=== PATIENT | female | born 1985 ===

== ENCOUNTER 2022-01-24 05:29 | Inpatient (IN) | payer OTHER ==
[2022-01-21 10:56] LABS: Hemoglobin 11.6 gm/dl (10.1-14.3)
[2022-01-21 10:59] LABS: Hematocrit 35.8 % (30.3-42.9); Mean Corpuscular HGB Conc 33 % (30-34); Mean Corpuscular Volume 89 fl (79-97); Platelet Count 304 K/mm3 (140-440); Red Blood Count 4.05 M/mm3 (3.65-5.03); Red Cell Distribution Width 13.6 % (13.2-15.2)
--- NOTE | 2022-01-23 17:13 | History and Physical Report ---
History of Present Illness Date of examination: 01/24/22 Chief complaint: Scheduled section History of present illness: Pt is a 36 year old female JERE 02/14/22 at 37w0d who presents for scheduled section due to malpresentation and intrauterine growth restriction. She denies contractions, vaginal bleeding or leakage of fluid. She has had care at [facility] with comanagement by MFM secondary to advanced maternal age, intrauterine growth restriction, malpresentation, late entry to care at 20 wks, morbid obesity, lapse in care from 25-32 wks, genital herpes without lesion or prodrome, and Anti-E antibody positive. Her GBS status is unknown as the culture was collected on 01/22/22. 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 History: herpes Family/Genetic History: hypertension Social history: no significant social history - Obstetrical History Expected Date of Delivery: 02/14/22 Actual Gestation: 36 Week(s) 6 Day(s) : 5 Para: 4 Hx # Term Pregnancies: 4 Number of Pregnancies: 0 Spontaneous Abortions: 0 Induced : 0 Number of Living Children: 4 Medications and Allergies Allergies Allergy/AdvReac Type Severity Reaction Status Date / Time No Known Allergies Allergy Unverified 01/18/22 16:33 Home Medications Medication Instructions Recorded Confirmed Last Taken Type Aspirin [Adult Aspirin] 81 mg PO DAILY 01/18/22 01/18/22 01/16/22 History Vit-Fe Fumar-FA [ 1 tab PO QDAY 01/18/22 01/18/22 Unknown History Vitamin] Active Meds: Active Medications Citric Acid/Sodium Citrate (Bicitra Oral Liqd 30ml) 30 ml PO ONCE ONE Stop: 01/24/22 06:01 Famotidine (Famotidine 20 Mg/2 Ml Inj) 20 mg IV ONCE ONE Stop: 01/24/22 06:01 Lactated Ringer's (Lactated Ringers) 1,000 mls @ 2,250 mls/hr IV PREOP DOUG Stop: 01/25/22 06:27 Oxytocin/Sodium Chloride (Pitocin/Ns 30 Unit/500ml) 30 units in 500 mls @ 0 mls/hr IV TITR DOUG; Protocol Cefazolin Sodium 3 gm/ Sodium (Chloride) 100 mls @ 100 mls/30 min IV PREOP NR; Protocol Metoclopramide HCl (Metoclopramide 10 Mg/2 Ml Inj) 10 mg IV ONCE ONE Stop: 01/24/22 06:01 Review of Systems All systems: negative - Vital Signs Vital signs: Vital Signs Temp Pulse Resp BP Pulse Ox 97.8 F 104 H 16 133/88 97 01/21/22 10:20 01/21/22 10:20 01/21/22 10:20 01/21/22 10:20 01/21/22 10:20 Temp Pulse Resp BP Pulse Ox 97.8 F 104 H 16 133/88 97 01/21/22 10:20 01/21/22 10:20 01/21/22 10:20 01/21/22 10:20 01/21/22 10:20 - Physical Exam Breasts: Positive: deferred Abdomen: Positive: soft (obese ) Extremities: Positive: edema (trace) - Obstetrical FHR: auscultation normal Uterine Contraction Monitor Mode: External Uterine Contraction Pattern: Irregular Results Result Diagrams: 01/21/22 08:12 All other labs normal. Assessment and Plan A: IUP at 37w0d IUGR Malpresentation Morbid Obesity Anti-E Antibody positive Advanced Maternal Age Genital Herpes GBS unknown P: Type and Screen Confirm malpresentation by ultrasound Proceed with primary section and other indicated procedures
[2022-01-24] MEDS ORDERED: METOCLOPRAMIDE 10 MG/2 ML INJ IV ONE (06:00)
[2022-01-24] MEDS ORDERED: LACTATED RINGERS 1,000 ML IV SCH (06:00)
[2022-01-24] MEDS ORDERED: BICITRA ORAL LIQD 30ML PO ONE (06:00)
[2022-01-24] MEDS ORDERED: OXYTOCIN DRIP 30 UNITS/500 ML BAG IV SCH (06:00)
[2022-01-24] MEDS ORDERED: FAMOTIDINE 20 MG/2 ML INJ IV ONE (06:00)
--- NOTE | 2022-01-24 06:16 | Ultrasound Report ---
ULTRASOUND OBSTETRIC LIMITED INDICATION / CLINICAL INFORMATION: Presentation, scheduled for 730 c section. Clinical Gestational Age (GA) in weeks, days: 37 weeks 0 days TECHNIQUE: Transabdominal. COMPARISON: None available. FINDINGS: Single intrauterine in cephalic presentation with heart rate 148 bpm. Signer Name: Tahir Barajas MD Signed: 01/24/2022 6:11 AM Workstation Name: [id number]
[2022-01-24] MEDS ORDERED: fentaNYL 100 MCG/2 ML INJ IV PRN (06:25)
[2022-01-24] MEDS ORDERED: ACETAMINOPHEN 325 MG TAB PO PRN (06:25)
[2022-01-24] MEDS ORDERED: AMPICILLIN/NS 2 GM/100 ML 2 GM/100 ML BAG IV ONE (06:25)
[2022-01-24] MEDS ORDERED: CARBOPROST TROMETHAMINE 250 MCG/1 ML INJ IM PRN (06:25)
[2022-01-24] MEDS ORDERED: ONDANSETRON 4 MG/2 ML INJ IV PRN (06:25)
[2022-01-24] MEDS ORDERED: miSOPROStol 200 MCG TAB PR PRN (06:25)
[2022-01-24] MEDS ORDERED: METHYLERGONOVINE MALEATE 0.2 MG/ML VIAL IM PRN (06:25)
[2022-01-24] MEDS ORDERED: TERBUTALINE 1 MG/1 ML INJ SUB-Q PRN (06:25)
[2022-01-24] MEDS ORDERED: BUTORPHANOL 2 MG/1 ML INJ IV PRN (06:25)
[2022-01-24] MEDS ORDERED: MINERAL OIL 30 ML ORAL LIQD PO PRN (06:25)
[2022-01-24] MEDS ORDERED: LOPERAMIDE 2 MG CAP PO PRN (06:25)
[2022-01-24] MEDS ORDERED: OXYTOCIN 10 UNIT/1 ML INJ IM PRN (06:25)
[2022-01-24] MEDS ORDERED: NALOXONE 0.4 MG/1 ML INJ IV PRN (06:25)
[2022-01-24] MEDS ORDERED: LIDOCAINE (2%) 20 MG/1 ML VIAL 20 ML MDV INFILTRATI ONE (06:25)
[2022-01-24] MEDS ORDERED: ePHEDrine SULFATE 50 MG/1 ML INJ IV PRN (06:25)
--- NOTE | 2022-01-24 06:25 | Event Note ---
Date: 01/24/22 Ultrasound to confirm malpresentation and indication for section reveals a single viable fetus in cephalic presentation. Plan to proceed with induction of labor rather than delivery at this time. Pt understands and agrees.
[2022-01-24] MEDS ORDERED: DINOPROSTONE 10 MG VAG SUPP VG ONE (08:25)
[2022-01-24] MEDS: LACTATED RINGERS 1,000 ML IV SCH (09:23)
[2022-01-24] MEDS ORDERED: AMPICILLIN 500 MG CAP PO SCH (18:00)
[2022-01-24] MEDS ORDERED: AMPICILLIN/NS 2 GM/100 ML 2 GM/100 ML BAG IV SCH (19:00)
[2022-01-24] MEDS: valACYclovir 500 MG TAB PO SCH (19:25)
--- NOTE | 2022-01-24 23:45 | Ultrasound Report ---
ULTRASOUND OBSTETRIC LIMITED INDICATION / CLINICAL INFORMATION: presentation. Clinical Gestational Age (GA) in weeks, days: 37 weeks 0 days TECHNIQUE: Transabdominal. COMPARISON: None available. FINDINGS: Single intrauterine in cephalic presentation with heart rate of 148 bpm. Signer Name: Tahir Barajas MD Signed: 01/24/2022 11:41 PM Workstation Name: [id number]
[2022-01-25] MEDS: AMPICILLIN/NS 1 GM/50 ML 1 GM/50 ML BAG IV SCH ×5 (01:00→20:40)
[2022-01-25] MEDS: LACTATED RINGERS 1,000 ML IV SCH (03:00)
[2022-01-25] MEDS: OXYTOCIN DRIP 30 UNITS/500 ML BAG IV SCH ×2 (03:12→17:03)
[2022-01-25] MEDS: miSOPROStol 25 MCG TAB VG PRN ×2 (07:50→12:30)
[2022-01-25] MEDS: valACYclovir 500 MG TAB PO SCH ×3 (07:56→22:38)
--- NOTE | 2022-01-25 08:58 | Progress Note ---
Assessment and Plan - Patient Problems (1) Intrauterine growth restriction (IUGR) affecting care of mother Current Visit: Yes Status: Acute Plan to address problem: Continue induction as planned Subjective - Subjective Date of service: 01/25/22 Interval history: Patient admitted for intrauterine growth restriction. She is scheduled for primary delivery secondary to malpresentation found to be in vertex presentation. Patient is currently undergoing induction with cervical ripening agents. Cervix is morning is [address] Cook catheter without success. Will proceed with Cytotec medication Patient reports: no new complaints Objective - Vital Signs Vital Signs: Vital Signs - 12hr 01/24/22 01/24/22 01/24/22 21:02 21:06 21:07 Temperature Pulse Rate 84 88 89 Respiratory Rate Blood Pressure O2 Sat by Pulse 96 92 92 Oximetry 01/24/22 01/24/22 01/24/22 21:12 21:17 21:22 Temperature Pulse Rate 90 89 101 H Respiratory Rate Blood Pressure O2 Sat by Pulse 89 93 92 Oximetry 01/24/22 01/24/22 01/24/22 21:24 21:27 21:32 Temperature 98.2 F Pulse Rate 68 94 H 92 H Respiratory Rate Blood Pressure O2 Sat by Pulse 93 89 66 L Oximetry 01/24/22 01/24/22 01/24/22 21:37 21:42 21:47 Temperature Pulse Rate 86 84 88 Respiratory Rate Blood Pressure O2 Sat by Pulse 69 L 62 L 72 L Oximetry 01/24/22 01/24/22 01/24/22 21:52 21:53 21:56 Temperature Pulse Rate 89 89 83 Respiratory Rate Blood Pressure 123/68 O2 Sat by Pulse 81 L 0 L Oximetry 01/24/22 01/24/22 01/24/22 21:57 22:02 22:03 Temperature Pulse Rate 67 91 H 84 Respiratory Rate Blood Pressure O2 Sat by Pulse 93 99 93 Oximetry 01/24/22 01/24/22 01/24/22 22:07 22:11 22:12 Temperature Pulse Rate 92 H 84 84 Respiratory Rate Blood Pressure O2 Sat by Pulse 88 89 91 Oximetry 01/24/22 01/24/22 01/24/22 22:16 22:17 22:22 Temperature Pulse Rate 90 86 82 Respiratory Rate Blood Pressure O2 Sat by Pulse 91 91 91 Oximetry 01/24/22 01/24/22 01/24/22 22:25 22:28 22:30 Temperature Pulse Rate 99 H Respiratory Rate Blood Pressure O2 Sat by Pulse 88 92 85 Oximetry 01/24/22 01/24/22 01/24/22 22:34 22:36 22:39 Temperature Pulse Rate 82 92 H Respiratory Rate Blood Pressure O2 Sat by Pulse 100 89 100 Oximetry 01/24/22 01/24/22 01/24/22 22:43 22:44 23:01 Temperature Pulse Rate 94 H 84 95 H Respiratory Rate Blood Pressure O2 Sat by Pulse 80 L 93 64 L Oximetry 01/24/22 01/24/22 01/24/22 23:06 23:07 23:11 Temperature Pulse Rate 99 H 90 102 H Respiratory Rate Blood Pressure O2 Sat by Pulse 96 87 89 Oximetry 01/24/22 01/24/22 01/24/22 23:16 23:19 23:21 Temperature Pulse Rate 89 95 H 88 Respiratory Rate Blood Pressure O2 Sat by Pulse 96 94 94 Oximetry 01/24/22 01/24/22 01/24/22 23:24 23:26 23:30 Temperature 98 F Pulse Rate 86 95 H Respiratory Rate Blood Pressure O2 Sat by Pulse 75 L 98 Oximetry 01/24/22 01/24/22 01/24/22 23:31 23:36 23:41 Temperature Pulse Rate 82 89 80 Respiratory Rate Blood Pressure O2 Sat by Pulse 97 99 95 Oximetry 01/24/22 01/24/22 01/24/22 23:46 23:51 23:55 Temperature Pulse Rate 80 84 84 Respiratory Rate Blood Pressure O2 Sat by Pulse 96 96 94 Oximetry 01/24/22 01/25/22 01/25/22 23:56 00:01 00:02 Temperature Pulse Rate 94 H 88 93 H Respiratory Rate Blood Pressure O2 Sat by Pulse 100 97 91 Oximetry 01/25/22 01/25/22 01/25/22 00:06 00:11 00:13 Temperature Pulse Rate 91 H 85 82 Respiratory Rate Blood Pressure O2 Sat by Pulse 0 L 100 89 Oximetry 01/25/22 01/25/22 01/25/22 00:16 00:19 00:21 Temperature Pulse Rate 94 H 94 H 98 H Respiratory Rate Blood Pressure O2 Sat by Pulse 95 94 95 Oximetry 01/25/22 01/25/22 01/25/22 00:24 00:26 00:31 Temperature Pulse Rate 97 H 99 H 93 H Respiratory Rate Blood Pressure O2 Sat by Pulse 92 90 94 Oximetry 01/25/22 01/25/22 01/25/22 00:36 00:41 00:43 Temperature Pulse Rate 94 H 99 H 96 H Respiratory Rate Blood Pressure O2 Sat by Pulse 97 96 93 Oximetry 01/25/22 01/25/22 01/25/22 00:46 00:48 00:51 Temperature Pulse Rate 91 H 94 H 97 H Respiratory Rate Blood Pressure O2 Sat by Pulse 93 94 96 Oximetry 01/25/22 01/25/22 01/25/22 00:54 00:56 01:00 Temperature 98.2 F Pulse Rate 98 H 101 H Respiratory Rate Blood Pressure O2 Sat by Pulse 89 93 Oximetry 01/25/22 01/25/22 01/25/22 01:01 01:06 01:11 Temperature Pulse Rate 91 H 88 86 Respiratory Rate Blood Pressure O2 Sat by Pulse 92 93 91 Oximetry 01/25/22 01/25/22 01/25/22 01:14 01:16 01:21 Temperature Pulse Rate 87 101 H 91 H Respiratory Rate Blood Pressure O2 Sat by Pulse 94 92 92 Oximetry 01/25/22 01/25/22 01/25/22 01:26 01:31 03:00 Temperature 98.1 F Pulse Rate 95 H 89 Respiratory Rate Blood Pressure O2 Sat by Pulse 92 93 Oximetry 01/25/22 01/25/22 01/25/22 05:37 05:43 05:55 Temperature 98.2 F Pulse Rate 89 83 Respiratory Rate Blood Pressure 129/76 131/78 O2 Sat by Pulse Oximetry 01/25/22 01/25/22 07:19 07:42 Temperature 98.6 F Pulse Rate 91 H Respiratory 14 Rate Blood Pressure 135/75 O2 Sat by Pulse Oximetry - Labs Labs: Abnormal Labs 01/21/22 01/24/22 08:12 06:00 WBC 12.0 H Crossmatch See Detail Laboratory Results - last 24 hr 01/24/22 06:00 Blood Type B POSITIVE Antibody Screen Positive Antibody Identification Anti-e Crossmatch See Detail
[2022-01-25] MEDS ORDERED: LIDOCAINE (2%) 20 MG/1 ML VIAL 20 ML MDV INFILTRATI ONE (11:49)
[2022-01-25] MEDS: PRENATAL VIT27-FE FUMARATE-FOLIC ACID VIT TAB PO SCH (13:14)
[2022-01-26] MEDS: AMPICILLIN/NS 1 GM/50 ML 1 GM/50 ML BAG IV SCH ×3 (01:22→07:08)
[2022-01-26] MEDS: LACTATED RINGERS 1,000 ML IV SCH ×4 (01:22→15:55)
--- NOTE | 2022-01-26 05:44 | Event Note ---
Date: 01/26/22 Patient is currently receiving Pitocin for her induction agent. Cervical exam consistent with 3-4/75%/-3. Amniotomy performed with evidence of clear fluid. IUPC placed however unable to place FSE. Performed ultrasound at bedside that confirmed vertex presentation. Will continue to increase Pitocin appropriately.
[2022-01-26] MEDS ORDERED: SODIUM CHLORIDE 0.9% 1000 ML 1,000 ML VG SCH (09:00)
[2022-01-26] MEDS: PRENATAL VIT27-FE FUMARATE-FOLIC ACID VIT TAB PO SCH (10:22)
[2022-01-26] MEDS: valACYclovir 500 MG TAB PO SCH (10:22)
[2022-01-26] MEDS ORDERED: FAMOTIDINE 20 MG/2 ML INJ IV ONE (12:01)
[2022-01-26] MEDS ORDERED: AZITHROMYCIN/NS 500 MG/250 ML 500 MG/250 ML BAG IV ONE (12:01)
[2022-01-26] MEDS ORDERED: BICITRA ORAL LIQD 30ML PO ONE (12:01)
[2022-01-26] MEDS ORDERED: METOCLOPRAMIDE 10 MG/2 ML INJ IV ONE (12:01)
[2022-01-26] MEDS ORDERED: LACTATED RINGERS 1,000 ML IV SCH (12:15)
[2022-01-26 12:47] LABS: Basophils # (Auto) 0.2 K/mm3 (0.0-0.1); Basophils % (Auto) 2.1 % (0.0-1.8); Eosinophils % (Auto) 0.4 % (0.0-4.3); Hemoglobin 11.2 gm/dl (10.1-14.3); Lymphocytes # (Auto) 1.4 K/mm3 (1.2-5.4); Lymphocytes % (Auto) 13.9 % (13.4-35.0); Mean Corpuscular HGB Conc 35 % (30-34); Mean Corpuscular Volume 87 fl (79-97); Monocytes # (Auto) 0.7 K/mm3 (0.0-0.8); Platelet Count 262 K/mm3 (140-440); Red Blood Count 3.68 M/mm3 (3.65-5.03); Red Cell Distribution Width 13.9 % (13.2-15.2)
--- NOTE | 2022-01-26 12:48 | Procedure Note ---
OB Delivery Note - Delivery Date of Delivery: 01/26/22 Surgeon: FARHAD LUTHER - Section Preop diagnosis: arrest of dilation Postop diagnosis: same section procedure: section, primary low transverse Disposition: PACU Complications: none - A at 1 minute: 8 at 5 minutes: 9 Infant Gender: Female (Weight 5 pounds 9 ounces)
--- NOTE | 2022-01-26 12:49 | Operative Report ---
Operative Report Operative Report: Date of surgery: January 26, 2022 Preoperative diagnosis: at 37 weeks and 3 days; arrest of dilatation; intrauterine growth restriction Postoperative diagnosis: Same as above Procedure: Primary low transverse delivery Surgeon: Katherine Tinsley M.D. Anesthesia: Regional Estimated blood loss: Default value IV fluids: 2 L Urine output: 150 mL Findings: Liveborn female infant with Apgars of 8 and 9 weight 5 pounds 9 ounces Indications: 36-year-old -0-0-4 at 37+3 weeks who presents for induction of labor secondary to intrauterine growth restriction. The patient has had malpresentation during the . Her intrapartum course was complicated by arrest of dilatation and arrest of descent. Procedure: The patient was taken to the operating room and given regional anesthesia without complication. She was prepped and draped in a normal sterile fashion. A Pfannenstiel skin incision was made down to layer the fascia which was nicked in the midline extended laterally with the Bovie cautery. The superior aspect of the rectus fascia was grasped with Empire clamps x2 and the rectus muscles off sharply. This was done in inferior fashion as well. The rectus muscle midline and peritoneum entered bluntly. An Balbir retractor was then inserted. A bladder blade was placed. The vesicouterine peritoneum was then entered sharply with Metzenbaum scissors. A bladder flap was created digitally. A low transverse uterine incision was then made and extended digitally. There was clear fluid upon entry into the uterine cavity. The head was noted to be flexed and in OP position. The head was delivered through the incision with fundal pressure. The cord was clamped and cut x2 and was passed off to pediatrics. The placenta was then manually extracted. The uterus was then exteriorized and cleared of clots and debris. The uterine incision was then closed in a running locked fashion with 0 Vicryl additional imbricating stitch was applied for 2 layer closure. The posterior cul-de-sac was then copiously irrigated. The uterus was replaced back into the abdomen and pelvis were the gutters were then irrigated. The Balbir retractor was then removed. The peritoneum was then reapproximated with 3-0 Vicryl incorporating the rectus muscle. The fascia was then closed with 0 Vicryl in a running fashion. The skin was then reapproximated with 3-0 Monocryl on a Baljeet needle subcuticular fashion. Steri-Strips to place across the incision and a Crede procedures performed at the end of the surgery. A pressure dressing was applied to the incision. The surgery productive of a liveborn female with Apgars of 8 and 9 weight 5 pounds 9 ounces. The patient was taken to the recovery room in stable condition. All sponge laps and needle counts correct x2.
[2022-01-26] MEDS ORDERED: LANOLIN/ZINC/DIMETHICONE (LANSINOH) 7 GM TP PRN (12:51)
[2022-01-26] MEDS ORDERED: NALOXONE 0.4 MG/1 ML INJ IV PRN (12:51)
[2022-01-26] MEDS ORDERED: WITCH HAZEL/ GLYCERIN PAD TP PRN (12:51)
[2022-01-26] MEDS ORDERED: MAGNESIUM HYDROXIDE (MOM) ORAL LIQD UDC PO PRN (12:52)
[2022-01-26] MEDS ORDERED: KETOROLAC 30 MG/1 ML INJ IV PRN (12:52)
[2022-01-26] MEDS ORDERED: ACETAMINOPHEN 325 MG TAB PO PRN (12:52)
[2022-01-26] MEDS ORDERED: OXYTOCIN DRIP 30 UNITS/500 ML BAG IV SCH ×2 (13:00)
--- NOTE | 2022-01-26 13:06 | Anesthesia Day of Surgery ---
Anesthesia Day of Surgery - Day of Surgery Patient Examined: Yes Patient H&P Reviewed: Yes Patient is NPO: Yes
--- NOTE | 2022-01-26 13:08 | Anesthesia Consultation ---
Anesthesia Consult and Med Hx Date of service: 01/26/22 - Airway Anesthetic Teeth Evaluation: Poor ROM Head & Neck: Adequate Mental/Hyoid Distance: Adequate Mallampati Class: Class II Intubation Access Assessment: Probably Good - Pulmonary Exam CTA: Yes - Cardiac Exam Cardiac Exam: RRR - Pre-Operative Health Status ASA Pre-Surgery Classification: ASA3 Proposed Anesthetic Plan: Spinal - Pulmonary Hx Smoking: Yes (Former) Hx Asthma: No Hx Respiratory Symptoms: No SOB: No Hx Sleep Apnea: No - Cardiovascular System Hx Hypertension: No Hx Heart Murmur: No - Central Nervous System Hx Neuromuscular Disorder: No Hx Seizures: No CVA: No Hx Back Pain: No Hx Psychiatric Problems: No - Gastrointestinal Hx Gastroesophageal Reflux Disease: Yes - Endocrine Hx Renal Disease: No Hx Insulin Dependent Diabetes: No Hx Non-Insulin Dependent Diabetes: No Hx Thyroid Disease: No Hx Hypothyroidism: No Hx Hyperthyroidism: No - Hematic Hx Anemia: No Hx Sickle Cell Disease: No - Other Systems Hx Alcohol Use: No Hx Substance Use: No Hx Cancer: No Hx Obesity: Yes
[2022-01-26] MEDS ORDERED: ceFAZolin/STERILE WATER 2 GM/20 ML SYRINGE IV ONE (13:15)
[2022-01-26] MEDS ORDERED: SODIUM CHLORIDE 0.9% IRR 1,500 ML BOTTLE IR ONE (13:52)
[2022-01-26] MEDS ORDERED: WATER FOR IRRIG STERILE 1,500 ML BOTTLE IR ONE (13:52)
--- NOTE | 2022-01-26 14:59 | Progress Note ---
Spinal Anesthesia Block - Spinal Anesthesia Block Start Time: 13:15 Stop Time: 13:26 Performed by:: HIMANSHU ANDERSON Procedure: Patient IDed, H&P reviewed, all questions and concerns were answered, and consent was signed. Timeout was performed at bedside. Patient in sitting position. Sterile prep and drape was performed. [3] ml of 1% lidocaine skin wheal at L[3]- L [4]. Needle introducer advanced. 25 gauge spinal needle advanced. Clear, free flowing CSF. negative blood, negative paresthesia. Spinal dose given. All needles removed. Patient tolerated procedure.
--- NOTE | 2022-01-26 15:01 | Progress Note ---
Regional Anesthesia Block - Regional Anesthesia Block Start Time: 14:32 Stop Time: 14:38 Performed By:: HIMANSHU ANDERSON Procedure: Patient consented for TAP block for post surgical pain management. Patient identified, monitors placed, and time out performed. TAP identified bilaterally via ultrasound. Skin prepped bilaterally with [chlorhexidine] and [22g stimuplex] needle advanced to the TAP. [Marcaine 0.25% 35ml] injected under ultrasound guidance on the [left] side. [Marcaine 0.25% 35ml] injected under ultrasound guidance on the [right] side. Negative aspiration every 5mL, No change in heart rate or rhythm. Patient tolerated the procedure well. No apparent complications seen.
[2022-01-26] MEDS ORDERED: ePHEDrine SULFATE 50 MG/1 ML INJ IM ONE (15:28)
[2022-01-27 01:24] LABS: Hematocrit 30.8 % (30.3-42.9); Hemoglobin 10.6 gm/dl (10.1-14.3)
[2022-01-27] MEDS: MORPHINE 4 MG/1 ML INJ IV PRN ×2 (01:46→06:50)
--- NOTE | 2022-01-27 13:07 | Post Anesthesia Evaluation ---
- Post Anesthesia Evaluation Patient Participated: Yes Airway Patent: Yes Stable Respiratory Function: Yes Nausea/Vomiting: No Temp > 96.8F: Yes Pain Manageable: Yes Adequeate Hydration: Yes Anesthesia Complications: No Block Receding Appropriately: Yes Patient on Ventilator: No
[2022-01-27] MEDS: IBUPROFEN 600 MG TAB PO PRN (14:06)
--- NOTE | 2022-01-27 15:08 | Progress Note ---
Assessment and Plan - Patient Problems (1) Status post repeat low transverse section Current Visit: Yes Status: Acute Plan to address problem: Continue routine PP orders Keep dressing clean and dry, remove on POD#2 Anticipate d/c in 24-48 hrs if stable (2) Anemia Current Visit: Yes Status: Acute Qualifiers: Anemia type: other cause Other causes of anemia: acute posthemorrhagic Qualified Code(s): D62 - Acute posthemorrhagic anemia Plan to address problem: Asymptomatic Increase iron rich foods into diet (3) Morbid obesity with BMI of 45.0-49.9, adult Current Visit: Yes Status: Acute Subjective - Subjective Date of service: 01/27/22 Principal diagnosis: S/P repeat C/S; POD#1 Interval history: Pt is a 36 year old female JERE 02/14/22 at 37w0d who presents for scheduled section due to malpresentation and intrauterine growth restriction. She denies contractions, vaginal bleeding or leakage of fluid. She [facility] with comanagement by MFM secondary to advanced maternal age, intrauterine growth restriction, ma lpresentation, late entry to care at 20 wks, morbid obesity, lapse in care from 25-32 wks, genital herpes without lesion or prodrome, and Anti-E antibody positive. Her GBS status is unknown as the culture was collected on 01/22/22. Delivered viable female infant via C/S. Patient reports: appetite normal, voiding normally, pain well controlled (with medications), flatus, ambulating normally, no bowel movement [place]: doing well, bottle feeding (and ) Objective - Vital Signs Latest vital signs: Vital Signs Temp Pulse Resp BP BP Pulse Ox Pulse Ox 01/27/22 12:19 98.2 F 88 18 124/75 96 01/27/22 08:25 98 01/27/22 07:36 98.5 F 75 18 125/56 96 01/27/22 04:43 98.0 F 67 20 127/63 97 01/27/22 02:15 96 01/27/22 01:46 95 01/27/22 00:40 98.2 F 67 20 111/61 95 01/26/22 21:33 98.1 F 75 22 99/55 95 01/26/22 19:30 98 01/26/22 16:45 100 01/26/22 16:44 98.0 F 80 16 108/55 99 01/26/22 16:10 79 16 100/54 99 01/26/22 16:05 83 21 91/56 99 01/26/22 16:00 76 21 85/53 97 01/26/22 15:55 77 20 91/45 96 01/26/22 15:50 74 14 85/43 97 01/26/22 15:45 81 17 84/50 97 01/26/22 15:35 67 17 99/49 97 01/26/22 15:30 73 17 91/54 96 01/26/22 15:25 69 16 81/45 97 01/26/22 15:20 68 17 91/42 97 01/26/22 15:15 72 19 81/41 96 01/26/22 15:10 72 14 90/46 96 Intake and Output 01/26/22 01/27/22 01/27/22 23:59 07:59 15:59 Intake Total 860 480 Output Total 1000 1100 350 Balance -1000 -240 130 Intake: Oral 440 480 Intake, Free Water 420 Output: Urine 1000 1100 350 Indwelling Catheter 900 Uretheral (Leon) 1000 200 Void 350 Other: Total, Intake Amount 240 240 Total, Output Amount 200 350 # Voids Void 1 - Exam Breasts: Present: normal Cardiovascular: Present: Regular rate Lungs: Present: Normal air movement Abdomen: Present: soft, tenderness Uterus: Present: firm, fundal height below umbilicus (U-2) Extremities: Present: edema Deep Tendon Reflex Grade: Normal +2 Incision: Present: dressed (no shadow drainage or bleeding noted) - Labs Labs: Abnormal lab results 01/24/22 Range/Units 06:00 Crossmatch See Detail
[2022-01-27] MEDS: oxyCODONE /ACETAMINOPHEN 5-325MG TAB PO PRN ×2 (16:40→23:44)
[2022-01-28] MEDS: IBUPROFEN 600 MG TAB PO PRN (03:37)
--- NOTE | 2022-01-28 08:29 | Progress Note ---
Assessment and Plan A: POD#2 s/p primary at term Morbid Obesity P: Routine postop care Subjective - Subjective Date of service: 01/28/22 Principal diagnosis: S/P repeat C/S; POD#2 Interval history: Patient without complaints this morning. Passing flatus. Voiding without difficulty. No bowel movement yet. Decreasing lochia Patient reports: appetite normal, voiding normally, pain well controlled, flatus, ambulating normally, no bowel movement : doing well Objective - Vital Signs Latest vital signs: Vital Signs Temp Pulse Resp BP BP Pulse Ox Pulse Ox 01/28/22 07:38 98.3 F 82 18 122/66 97 01/28/22 06:00 97 01/28/22 03:35 98 01/28/22 01:25 98 01/28/22 00:24 98.4 F 73 20 119/71 92 01/27/22 23:46 97 01/27/22 21:45 97 01/27/22 19:30 98 01/27/22 15:04 98.2 F 86 18 118/64 97 01/27/22 12:19 98.2 F 88 18 124/75 96 Intake and Output 01/27/22 01/28/22 01/28/22 22:59 06:59 14:59 Intake Total 600 480 240 Balance 600 480 240 Intake: Oral 600 480 240 Other: Total, Intake Amount 240 120 240 # Voids Void 1 1 1 - Exam Breasts: Present: deferred Abdomen: Present: soft (obese ) Uterus: Present: fundal height below umbilicus Extremities: Present: edema (trace ) Incision: Present: dressed - Labs Labs: Abnormal lab results 01/24/22 Range/Units 06:00 Crossmatch See Detail
[2022-01-28] MEDS ORDERED: IBUPROFEN 600 MG TAB PO SCH (09:00)
[2022-01-28] MEDS ORDERED: IBUPROFEN 800 MG TAB PO SCH (09:00)
[2022-01-28] MEDS: oxyCODONE /ACETAMINOPHEN 5-325MG TAB PO PRN ×2 (10:00→23:21)
[2022-01-29] MEDS: oxyCODONE /ACETAMINOPHEN 5-325MG TAB PO PRN (07:18)
--- NOTE | 2022-01-29 08:47 | Progress Note ---
Assessment and Plan A:POD#3 s/p Primary C/S at term P: Continue with routine care with discharge this morning. Subjective - Subjective Date of service: 01/29/22 Principal diagnosis: S/P repeat C/S; POD#2 Interval history: POD#3 s/p Primary C/S at term. Patient is feeling well and has no complaints. [place] to report decreasing lochia, adequate pain control but denies having a bowel movement. Patient reports: appetite normal, voiding normally, pain well controlled, flatus, ambulating normally, no bowel movement [place]: doing well Objective - Vital Signs Latest vital signs: Vital Signs Temp Pulse Resp BP BP Pulse Ox Pulse Ox 01/29/22 07:15 98 01/29/22 00:00 98.4 F 74 18 114/72 01/28/22 23:21 20 01/28/22 20:00 98 01/28/22 15:39 98.5 F 93 H 18 121/74 98 01/28/22 10:00 20 Intake and Output 01/28/22 01/29/22 01/29/22 23:59 07:59 15:59 Intake Total 440 200 Balance 440 200 Intake: Oral 440 200 Other: Total, Intake Amount 200 200 # Voids Void 1 1
--- NOTE | 2022-01-29 08:47 | Discharge Summary ---
Providers - Providers Date of Admission: 01/24/22 05:29 Date of discharge: 01/29/22 Attending physician: ANTOINETTE BASS Primary care physician: ANTOINETTE BASS Hospitalization Reason for admission: section (Malpresentation and IUGR) Delivery: Procedure: repeat low transverse Incision: normal, dry, intact Other procedures: none complications: none Discharge diagnosis: IUP at term delivered [place] baby: female Hospital course: Patient's hospital course was uncomplicated. Condition at discharge: Good Disposition: 01 HOME / SELF CARE / HOMELESS Plan - Discharge Medications Prescriptions: Docusate Sodium [Colace] 100 mg PO BID PRN 7 Days #14 capsule PRN Reason: Constipation Ibuprofen [Motrin] 800 mg PO Q8HR PRN #30 tablet PRN Reason: Pain, Moderate (4-6) oxyCODONE /ACETAMINOPHEN [Percocet 5/325] 1 tab PO Q6HR PRN #30 tablet PRN Reason: Pain - Provider Discharge Summary Activity: routine, other (No sex or strenuous excercise for 8 weeks. No heavy lifting for 6 weeks) Diet: routine Instructions: routine Additional instructions: [] Smoking cessation referral if applicable(refer to patient education folder for contact #) [] Refer to [facility] Booklet Call your doctor immediately for: * Fever > 100.5 * Heavy vaginal bleeding ( >1 pad per hour) * Severe persistent headache * Shortness of breath * Reddened, hot, painful area to leg or breast * Drainage or odor from incision. * Keep incision clean and dry at all times and follow doctor's instructions regarding bathing/showering Schedule incision check in 2 weeks - Follow up plan Follow up: ANTOINETTE BASS MD [Primary Care Provider] - 14 Days
[2022-01-29 10:55] VITALS: BP 139/91
== END 2022-01-29 11:05 | disposition home or self-care (01) | DRG 765 ==
LOC: APU 05:29 → LD 09:40 → APU 01-26 13:13 → OB 01-26 17:13
PROVIDERS: ADMIT Obstetrics & Gynecology; ATTEND Obstetrics & Gynecology
PROC: 10D00Z1 Extraction of Products of Conception, Low, Open Approach (ICD-10-PCS; principal; 2022-01-26)
PROC: 3E0T3BZ Introduction of Anesthetic Agent into Peripheral Nerves and Plexi, Percutaneous Approach (ICD-10-PCS; 2022-01-26)
DX: O36.5930 Maternal care for other known or suspected poor fetal growth, third trimester, not applicable or unspecified (principal); O98.32 Other infections with a predominantly sexual mode of transmission complicating childbirth; D62 Acute posthemorrhagic anemia; A60.00 Herpesviral infection of urogenital system, unspecified; O62.1 Secondary uterine inertia; O99.62 Diseases of the digestive system complicating childbirth; K21.9 Gastro-esophageal reflux disease without esophagitis; O90.81 Anemia of the puerperium; O99.214 Obesity complicating childbirth; E66.01 Morbid (severe) obesity due to excess calories; Z20.822 Contact with and (suspected) exposure to COVID-19; Z37.0 Single live birth; Z3A.37 37 weeks gestation of pregnancy
CPT/HCPCS: 36415; 59200; 76815; 85014; 85018; 85025; 85027; 86592; 86850; 86870; 86900; 86901; 86922; G0378; J3490; Q0162; J0290; J0690; J2270; J2590; J2765; J7030; J7120; U0003